=== PATIENT | female | born 1975 | race Caucasian/White ===

== ENCOUNTER 2016-08-21 21:53 | Inpatient (IN) | payer MEDICAID ==
[2016-08-21 23:40] LABS: BASO # 0.1 K/uL (0.0-0.2); EOS # 0.1 K/uL (0.0-0.7); EOS % 0.9 % (0.0-4.0); HEMATOCRIT 39.6 % (34.0-47.0); LYMPH # 2.4 K/uL (1.0-4.3); LYMPH % 31.2 % (20.0-40.0); MEAN CELL VOLUME 89.1 fl (81.0-99.0); MEAN CORPUSCULAR HGB CONC 33.7 g/dL (33.0-37.0); MONO # 0.7 K/uL (0.0-0.8); MONO % 8.8 % (0.0-10.0); NEUT # 4.5 K/uL (1.8-7.0); NEUT % 58.1 % (50.0-75.0); NRBC % 0.1 % (0.0-0.0); RED CELL DISTRIBUTION WIDTH 13.2 % (11.5-14.5); WHITE BLOOD COUNT 7.7 K/uL (4.8-10.8)
[2016-08-21 23:49] LABS: ALB/GLOB RATIO 1.1 (1.0-2.1); ALCOHOL SERUM < 10 mg/dl (0-10); ALKALINE PHOSPHATASE 53 U/L (38-126); ALT/SGPT 29 U/L (9-52); AST/SGOT 25 U/L (14-36); BILIRUBIN,TOTAL 0.2 mg/dl (0.2-1.3); BLOOD UREA NITROGEN 18 mg/dl (7-17); CALCIUM 9.1 mg/dL (8.4-10.2); CARBON DIOXIDE 22 mmol/L (22-30); CHLORIDE 108 mmol/L (98-107); GFR AFRICAN-AMERICAN > 60; GLUCOSE,RANDOM 170 mg/dL (65-105); POTASSIUM 3.9 MMOL/L (3.6-5.0); SODIUM 144 mmol/l (132-148); TOTAL PROTEIN 7.5 G/DL (6.3-8.2)
--- NOTE | 2016-08-22 01:39 | ED PDOC ---
HPI: Psych/Substance Abuse Time Seen by Provider: 08/21/16 22:30 Chief Complaint (Nursing): Substance Abuse Chief Complaint (Provider): substance abuse History Per: EMS Additional History Per: EMS Additional Complaint(s): 41 y/o female brought in by EMS for possible alcohol intoxication. Patient found sleeping [place] ground [place] [employer] [place]. HPI limited, patient awake but refusing to answer questions. Past Medical History Reviewed: Historical Data, Nursing Documentation, Vital Signs Vital Signs: Last Vital Signs Temp 98.1 F 08/21/16 21:55 Pulse 87 08/21/16 21:55 Resp 18 08/21/16 21:55 BP 128/87 08/21/16 21:55 Pulse Ox 99 08/21/16 21:55 - Medical History PMH: Anxiety, Bipolar Disorder Denies: Diabetes, Hepatitis, HIV, HTN, Kidney Stones, Chronic Kidney Disease , Seizures, Sexually Transmitted Disease - Surgical History Surgical History: Hernia Repair, (x 3) - Family History Family History: States: Unknown Family Hx - Home Medications Home Medications: Ambulatory Orders Medication Instructions Recorded No Known Home Med 08/22/16 - Allergies Allergies/Adverse Reactions: Allergies Allergy/AdvReac Type Severity Reaction Status Date / Time haloperidol [From Haldol] Allergy RASH Verified 03/24/16 15:04 haloperidol lactate Allergy RASH Verified 03/24/16 15:04 [From Haldol] lithium Allergy URTICARIA Verified 03/24/16 15:04 Review of Systems ROS Statement: Except As Marked, All Systems Reviewed And Found Negative Physical Exam - Reviewed Nursing Documentation Reviewed: Yes Vital Signs Reviewed: Yes - Physical Exam Appears: Positive for: Well, Non-toxic, No Acute Distress Head Exam: Positive for: ATRAUMATIC, NORMAL INSPECTION, NORMOCEPHALIC Skin: Positive for: Normal Color Eye Exam: Positive for: Normal appearance, EOMI, PERRL ENT: Positive for: Normal ENT Inspection Cardiovascular/Chest: Positive for: Regular Rate, Rhythm Respiratory: Positive for: Normal Breath Sounds Gastrointestinal/Abdominal: Positive for: Normal Exam Extremity: Positive for: Normal ROM Neurologic/Psych: Positive for: Alert. Negative for: Oriented - Laboratory Results Result Diagrams: 08/21/16 23:37 08/21/16 23:37 - ECG ECG: Positive for: Viewed By Me (reviewed by ED attending) ECG Rhythm: Positive for: Sinus Rhythm O2 Sat by Pulse Oximetry: 99 - Radiology X-Ray: Viewed By De X-Ray Interpretation: No Acute Disease - Progress ED Course And Treament: accucheck, labs, urine Medical Decision Making Medical Decision Making: Patient medically stable for psych admission. ED OBSERVATION Date of observation admission: 08/22/16 Time of observation admission: 00:00 - Observation admission statement Patient is being placed in observation because:: substance abuse, bizarre behavior - Goals of Observation Goals of observation are:: observe for sobriety - Progress Note Progress Note: 08/22/16 00:00 Patient sleeping; no distress 08/22/16 1:20 Patient noted to be out of exam room; walking around ED without responding to anyone when called. Patient does not respond to questions when approached, just stares. Patient brought back to room but is now outside of exam room again. Security at bedside. Patient medicated with Ativan for agitation/comfort and restrained for high risk of elopement/self harm/staff harm ; CT head ordered for bizarre behavior EXAM: CT Head Without Intravenous Contrast. CLINICAL HISTORY: 41 years old, female; Signs and symptoms; Altered mental status/memory loss; Additional info: AMS TECHNIQUE: Axial computed tomography images of the head/brain without intravenous contrast. This CT exam was performed using one or more of the following dose reduction techniques: automated exposure control, adjustment of the mA and/or kV according to patient size, and/or use of iterative reconstruction technique. Coronal and sagittal reformatted images were created and reviewed. EXAM DATE/TIME: 08/22/2016 1:35 AM COMPARISON: No relevant prior studies available. FINDINGS: No intracranial hemorrhage. No intracranial edema. No evidence of infarct. The sinuses and mastoid air cells are clear. IMPRESSION: No acute findings. 08/22/16 05:33 Patient evaluated by lithopone mill worker; to be admitted as per Dr. Black. Disposition - Clinical Impression Clinical Impression: Bipolar disorder, Polysubstance abuse - Patient ED Disposition Is Patient to be Admitted: Yes - Disposition Disposition Time: 05:49 Condition: STABLE - Pt Status Changed To: Hospital Disposition Of: Inpatient - Admit Certification Admit to Inpatient:: After my assessment, the patient will require hospitalization for at least two midnights. This is because of the severity of symptoms shown, intensity of services needed, and/or the medical risk in this patient being treated as an outpatient. - POA Present On Arrival: None
--- NOTE | 2016-08-22 03:01 | CT ---
EXAM: CT Head Without Intravenous Contrast. CLINICAL HISTORY: 41 years old, female; Signs and symptoms; Altered mental status/memory loss; Additional info: AMS TECHNIQUE: Axial computed tomography images of the head/brain without intravenous contrast. This CT exam was performed using one or more of the following dose reduction techniques: automated exposure control, adjustment of the mA and/or kV according to patient size, and/or use of iterative reconstruction technique. Coronal and sagittal reformatted images were created and reviewed. EXAM DATE/TIME: 08/22/2016 1:35 AM COMPARISON: No relevant prior studies available. FINDINGS: No intracranial hemorrhage. No intracranial edema. No evidence of infarct. The sinuses and mastoid air cells are clear. IMPRESSION: No acute findings.
[2016-08-22 07:34] VITALS: RESP 20
--- NOTE | 2016-08-22 07:53 | CARD ---
APPROVED REPORT EKG Measurement Heart [id number] FL 146P-6 [id number] <Conclusion> Normal sinus rhythm Normal ECG
--- NOTE | 2016-08-22 09:27 | RAD ---
HISTORY: clearance COMPARISON: Comparison chest 03/24/2016. FINDINGS: LUNGS: No active pulmonary disease. Bilateral nipple shadows are present. PLEURA: No significant pleural effusion identified, no pneumothorax apparent. CARDIOVASCULAR: Normal. OSSEOUS STRUCTURES: Note made of small soft tissue calcification adjacent to the greater tuberosity right humerus consistent with calcific tendinitis or bursitis. VISUALIZED UPPER ABDOMEN: Normal. OTHER FINDINGS: None. IMPRESSION: No active disease.
[2016-08-22 10:20] VITALS: BP 120/77; PULSE 88; TEMP 98.4
[2016-08-22 10:32] VITALS: O2SAT 98
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
--- NOTE | 2016-08-22 11:58 | PCM.PYCHDC ---
Mental Status Examination - Mental Status Examination Suicidal Ideation: No Current Homicidal Ideation?: No Plan: see admission not mse. denies suicidal/homicidal thoughts Discharge Summary - Discharge Note Reason for Hospitalization: depression Psychiatric History (includes Medical, Family, Personal Hx): history of polysubstance abuse Consultations:: List each consultation separately and include: 1. Reason for request. 2. Findings. 3. Follow-up Summary of Hospital Course include:: 1. Description of specific treatment plan utilized for patients during their course of treatmen. 2. Summarize the time- course for resolution of acute symptoms and/or regressed behaviors. 3. Describe issues identified and worked on during hospitalization. 4. Describe medication utilized. 5. Describe medical problems identified and treated. 6. Reassessment of suicide risk Summary of Hospital Course: 41 yo female who is a polysubstance abuser. she does not want to be in the hospital. she states her mother 3 years ago today. she states she felt sad and used heroin (her urine is positive for opioids, cannabinoid, benzos and cocaine. she states that the ER is lying and that she does not want to kill herself. her is waiting downstairs to pick the patient up. she states she will go to the cemetery to visit her mothers grave, pay her rent and go back to work. she denies any psychotic symptoms. she is demanding to leave the hospital. she denies any intent to harm self. hospital course: pt seen in treatment team and was assessed and was denying suicidal or homicidal thoughts. she had family waiting downstairs who was supportive. - Final Diagnosis (DSM 5) Condition upon Discharge: STABLE DSM 5: polysubstance dependence Disposition: AGAINST MEDICAL ADVICE Follow-up Treatment Plan: pt will be discharged home with and follow up with her aftercare appointments she will call 911 if any suicidal thoughts she was advised to abstain from alcohol, tobacco or other illicit substances - Smoking Cessation Smoking Cessation Medication prescribed: No - Antipsychotic Medications Pt discharged on 2 or more routine antipsychotic medications: No
== END 2016-08-22 12:58 | disposition left against medical advice (07) | DRG 743 ==
LOC: H.ER 21:53 → H.EROBSV 08-22 → OBSVTOIN 08-22 05:30 → H.ERHOLD 08-22 05:30 → H.PSYCH 08-22 10:36
PROVIDERS: ADMIT Psychiatry & Neurology Psychiatry; ATTEND Psychiatry & Neurology Psychiatry
DX: F12.20 Cannabis dependence, uncomplicated (principal); F11.20 Opioid dependence, uncomplicated; F13.20 Sedative, hypnotic or anxiolytic dependence, uncomplicated; F14.20 Cocaine dependence, uncomplicated; F39 Unspecified mood [affective] disorder; Z78.1 Physical restraint status

== ENCOUNTER 2016-11-20 23:10 | Observation (INO) | payer MEDICAID ==
[2016-11-20 23:15] VITALS: PULSE 75; O2SAT 99
--- NOTE | 2016-11-20 23:40 | ED PDOC ---
HPI: Psych/Substance Abuse Time Seen by Provider: 11/20/16 23:25 Chief Complaint (Nursing): Psychiatric Evaluation Chief Complaint (Provider): psych eval ED Caveat: Other (clinical presentation) History Per: EMS, Family History/Exam Limitations: clinical condition Current Symptoms Are (Timing): Still Present Additional Complaint(s): The patient is a 41yo female, brought to the ED by her father for evaluation as patient has not been speaking. Per EMS, the pt's father called EMS because the patient had not been answering questions and the father was unsure if the patient has been compliant with her medications. At present, a full HPI and ROS is unavailable as patient is not speaking. Of note, pt has spontaneous eye movements and normal movements in all extremities. Pt was also seen in this facility in July for similar complaints. Past Medical History Reviewed: Historical Data, Nursing Documentation, Vital Signs Vital Signs: Last Vital Signs Temp 98 F 11/20/16 23:11 Pulse 75 11/20/16 23:11 Resp 17 11/20/16 23:11 BP 128/92 H 11/20/16 23:11 Pulse Ox 99 11/20/16 23:11 - Medical History PMH: Anxiety, Bipolar Disorder Denies: Diabetes, Hepatitis, HIV, HTN, Kidney Stones, Chronic Kidney Disease , Seizures, Sexually Transmitted Disease - Surgical History Surgical History: Hernia Repair, (x 3) - Family History Family History: States: Unknown Family Hx - Living Arrangements Living Arrangements: With Family - Home Medications Home Medications: Ambulatory Orders Medication Instructions Recorded No Known Home Med 08/22/16 - Allergies Allergies/Adverse Reactions: Allergies Allergy/AdvReac Type Severity Reaction Status Date / Time haloperidol [From Haldol] Allergy RASH Verified 03/24/16 15:04 haloperidol lactate Allergy RASH Verified 03/24/16 15:04 [From Haldol] lithium Allergy URTICARIA Verified 03/24/16 15:04 Review of Systems ROS Statement: Except As Marked, All Systems Reviewed And Found Negative Review Of Systems: ROS cannot be obtained secondary to pt's inabilty to answer questions. (pt is not responding to questions) Physical Exam - Reviewed Nursing Documentation Reviewed: Yes Vital Signs Reviewed: Yes - Physical Exam Appears: Positive for: Well, Non-toxic, No Acute Distress Head Exam: Positive for: ATRAUMATIC, NORMAL INSPECTION, NORMOCEPHALIC Skin: Positive for: Normal Color Eye Exam: Positive for: Normal appearance, Other (spontaneous eye movements) Neck: Positive for: Normal Cardiovascular/Chest: Positive for: Regular Rate, Rhythm Respiratory: Positive for: Normal Breath Sounds. Negative for: Respiratory Distress Extremity: Positive for: Normal ROM. Negative for: Deformity, Swelling - ECG O2 Sat by Pulse Oximetry: 99 (RA) Pulse Ox Interpretation: Normal Medical Decision Making Medical Decision Making: Time: 2335 Impression: Bipolar disorder Upon review of previous charts, patient was evaluated in this facility in July 2016 for similar presentation and was admitted. Plan: * Bloodwork * Urinalysis * ED Observation Scribe Attestation: Documented by Juliette Osuna acting as a scribe for Lakeisha Bolden MD. Provider Attestation: All medical record entries made by the Scribe were at my direction and personally dictated by me. I have reviewed the chart and agree that the record accurately reflects my personal performance of the history, physical exam, medical decision making, and the department course for this patient. I have also personally directed, reviewed, and agree with the discharge instructions and disposition. ED OBSERVATION Date of observation admission: 11/20/16 Time of observation admission: 23:36 - Observation admission statement Patient is being placed in observation because:: Patient awaiting bloodwork.
[2016-11-21 00:41] LABS: BASO % 0.5 % (0.0-2.0); EOS % 0.2 % (0.0-4.0); HEMATOCRIT 39.9 % (34.0-47.0); LYMPH # 2.7 K/uL (1.0-4.3); LYMPH % 33.9 % (20.0-40.0); MEAN CELL VOLUME 89.5 fl (81.0-99.0); MEAN CORPUSCULAR HEMOGLOBIN 29.7 pg (27.0-31.0); MEAN CORPUSCULAR HGB CONC 33.2 g/dL (33.0-37.0); MEAN PLATELET VOLUME 8.1 fl (7.2-11.7); MONO # 0.6 K/uL (0.0-0.8); MONO % 7.9 % (0.0-10.0); NEUT # 4.5 K/uL (1.8-7.0); NEUT % 57.5 % (50.0-75.0); NRBC % 0.1 % (0.0-0.0); RED CELL DISTRIBUTION WIDTH 13.1 % (11.5-14.5); WHITE BLOOD COUNT 7.9 K/uL (4.8-10.8)
[2016-11-21 00:50] LABS: ALB/GLOB RATIO 1.2 (1.0-2.1); ALKALINE PHOSPHATASE 57 U/L (38-126); ALT/SGPT 88 U/L (9-52); AST/SGOT 33 U/L (14-36); BILIRUBIN,TOTAL 0.9 mg/dl (0.2-1.3); BLOOD UREA NITROGEN 23 mg/dl (7-17); CALCIUM 9.5 mg/dL (8.4-10.2); CARBON DIOXIDE 18 mmol/L (22-30); CHLORIDE 108 mmol/L (98-107); GFR AFRICAN-AMERICAN > 60; GLUCOSE,RANDOM 97 mg/dL (65-105); POTASSIUM 3.4 MMOL/L (3.6-5.0); SODIUM 139 mmol/l (132-148); TOTAL PROTEIN 8.2 G/DL (6.3-8.2)
--- NOTE | 2016-11-21 01:52 | ED PDOC ---
- Laboratory Results Result Diagrams: 11/20/16 00:38 11/20/16 23:38 - ECG O2 Sat by Pulse Oximetry: 99 (RA) Pulse Ox Interpretation: Normal Medical Decision Making Medical Decision Making: Receiving sign out: Patient signed out to me by Dr. Bolden pending bloodwork, crisis evaluation and final ED dispo. Scribe Attestation: Documented by Juliette Osuna acting as a scribe for Bettina Hardy MD. Provider Attestation: All medical record entries made by the Scribe were at my direction and personally dictated by me. I have reviewed the chart and agree that the record accurately reflects my personal performance of the history, physical exam, medical decision making, and the department course for this patient. I have also personally directed, reviewed, and agree with the discharge instructions and disposition. Disposition Doctor Will See Patient In The: Office Counseled Patient/Family Regarding: Studies Performed, Diagnosis, Need For Followup - Clinical Impression Clinical Impression: Substance abuse, Bipolar disorder - POA Present On Arrival: None - Disposition Disposition: Routine/Home Disposition Time: 04:11 Condition: GOOD Progress Note - Review of Symptoms Events since last encounter: 11/21/2016 04:11 Pt seen and evaluated by crisis; stable for discharge home per Dr. Ku Final diagnosis: Substance abuse, bipolar disorder
[2016-11-21 02:47] LABS: ALCOHOL SERUM < 10 mg/dl (0-10)
[2016-11-21 04:34] VITALS: BP 126/82; RESP 18; TEMP 98.3
--- NOTE | 2016-11-21 18:08 | CARD ---
APPROVED REPORT EKG Measurement Heart [id number] DE 148P-12 [id number] <Conclusion> Normal sinus rhythm Normal ECG
== END 2016-11-21 04:11 | disposition home or self-care (01) ==
LOC: H.ER 23:10 → H.EROBSV 23:36
PROVIDERS: ADMIT Emergency Medicine; ATTEND Emergency Medicine
DX: F31.9 Bipolar disorder, unspecified (principal); F19.10 Other psychoactive substance abuse, uncomplicated

== ENCOUNTER 2017-03-23 07:24 | Emergency (ER) | payer MEDICAID ==
[2017-03-23 07:30] VITALS: BMI 24.9
[2017-03-23 08:42] LABS: BASO % 0.5 % (0.0-2.0); EOS # 0.1 K/uL (0.0-0.7); EOS % 1.7 % (0.0-4.0); HEMATOCRIT 38.7 % (34.0-47.0); LYMPH # 1.5 K/uL (1.0-4.3); LYMPH % 25.7 % (20.0-40.0); MEAN CELL VOLUME 83.4 fl (81.0-99.0); MEAN CORPUSCULAR HEMOGLOBIN 29.4 pg (27.0-31.0); MEAN CORPUSCULAR HGB CONC 35.3 g/dL (33.0-37.0); MONO # 0.9 K/uL (0.0-0.8); MONO % 15.8 % (0.0-10.0); NEUT # 3.3 K/uL (1.8-7.0); NEUT % 56.3 % (50.0-75.0); NRBC % 0.2 % (0.0-0.0); RED CELL DISTRIBUTION WIDTH 12.7 % (11.5-14.5); WHITE BLOOD COUNT 5.9 K/uL (4.8-10.8)
[2017-03-23 09:03] LABS: ALCOHOL SERUM < 10 mg/dl (0-10); BLOOD UREA NITROGEN 16 mg/dl (7-17); CALCIUM 9.6 mg/dL (8.4-10.2); CARBON DIOXIDE 22 mmol/L (22-30); CHLORIDE 105 mmol/L (98-107); GFR AFRICAN-AMERICAN > 60; GLUCOSE,RANDOM 92 mg/dL (65-105); POTASSIUM 3.7 MMOL/L (3.6-5.0); SODIUM 138 mmol/l (132-148)
--- NOTE | 2017-03-23 09:05 | ED PDOC ---
HPI: Psych/Substance Abuse Time Seen by Provider: 03/23/17 07:30 Chief Complaint (Nursing): Psychiatric Evaluation Chief Complaint (Provider): Psychiatric evaluation ED Caveat: Respiratory Distress, Uncooperative (uncooperative at ties) History Per: EMS Additional Complaint(s): 42yo female, brought in by EMS for a psychaitric evaluation after receiving a call from patient's boyfriend stating patient was acting bizarre. Upon interview , patient is somewhat uncooperative and is not answering all questions; a full HPI and ROS unavailable. Patient denies any suicidal ideation, homicidal ideation and offers no medical complaints. Past Medical History Reviewed: Historical Data, Nursing Documentation, Vital Signs Vital Signs: Last Vital Signs Temp 98.8 F 03/23/17 07:28 Pulse 88 03/23/17 07:28 Resp 18 03/23/17 07:28 BP 107/72 03/23/17 07:28 Pulse Ox 97 03/23/17 07:28 - Medical History PMH: Anxiety, Bipolar Disorder Denies: Diabetes, Hepatitis, HIV, HTN, Kidney Stones, Chronic Kidney Disease , Seizures, Sexually Transmitted Disease - Surgical History Surgical History: Hernia Repair, (x 3) - Family History Family History: States: No Known Family Hx, Unknown Family Hx - Home Medications Home Medications: Ambulatory Orders Medication Instructions Recorded No Known Home Med 08/22/16 - Allergies Allergies/Adverse Reactions: Allergies Allergy/AdvReac Type Severity Reaction Status Date / Time haloperidol [From Haldol] Allergy RASH Verified 03/24/16 15:04 haloperidol lactate Allergy RASH Verified 03/24/16 15:04 [From Haldol] lithium Allergy URTICARIA Verified 03/24/16 15:04 Review of Systems ROS Statement: Except As Marked, All Systems Reviewed And Found Negative Psych: Negative for: Suicidal ideation, Other (homicidal ideation ) Physical Exam - Reviewed Nursing Documentation Reviewed: Yes Vital Signs Reviewed: Yes - Physical Exam Appears: Positive for: Non-toxic Head Exam: Positive for: ATRAUMATIC, NORMAL INSPECTION, NORMOCEPHALIC Eye Exam: Positive for: Normal appearance Neck: Positive for: Supple Cardiovascular/Chest: Positive for: Regular Rate, Rhythm Respiratory: Positive for: Normal Breath Sounds. Negative for: Respiratory Distress Neurologic/Psych: Positive for: Alert, Oriented, Mood/Affect (flat) - Laboratory Results Result Diagrams: 03/23/17 08:15 03/23/17 08:15 - ECG ECG: Positive for: Interpreted By Me, Viewed By Me ECG Rhythm: Positive for: Normal QRS, Normal ST Segment, Sinus Rhythm Rate: 76 O2 Sat by Pulse Oximetry: 97 (RA) Pulse Ox Interpretation: Normal Medical Decision Making Medical Decision Making: Time: 814 Impression: Psychiatric evaluation Plan: -- Labs -- Urinalysis Reassess Time: 1146 Patient to be [place] by [facility] EKG ordered. Time: 1158 EKG normal Patient medically cleared. Time: 1330 Resting in room, no acute distress Time: 1500 Patient resting in room, no distress. pending [facility] [place]. Time: 1700 Patient to be signed out to Dr. Hardy pending [facility] screen. Scribe Attestation: Documented by Juliette Osuna acting as a scribe for Kalen Rogers MD. Provider Attestation: All medical record entries made by the Scribe were at my direction and personally dictated by me. I have reviewed the chart and agree that the record accurately reflects my personal performance of the history, physical exam, medical decision making, and the department course for this patient. I have also personally directed, reviewed, and agree with the discharge instructions and disposition. Disposition - Clinical Impression Clinical Impression: Bipolar 1 disorder, manic, mild - Patient ED Disposition Is Patient to be Admitted: Transfer of Care - Disposition Disposition: Transfer of Care Disposition Time: 17:00 Condition: STABLE Forms: [facility] ([place]) Patient Signed Over To: Bettina Hardy
[2017-03-23 10:04] LABS: URINE BILIRUBIN NEGATIVE (NEGATIVE); URINE BLOOD NEGATIVE (NEGATIVE); URINE COLOR AMBER (YELLOW); URINE GLUCOSE (UA) NEG (Normal); URINE KETONE NEGATIVE (NEGATIVE); URINE LEUKOCYTE ESTERASE NEG Leu/uL (Negative); URINE PROTEIN 30 mg/dL (NEGATIVE); WBC URINE 1 /hpf (0-5)
--- NOTE | 2017-03-23 17:00 | ED PDOC ---
- Laboratory Results Result Diagrams: 03/23/17 08:15 03/23/17 08:15 - ECG O2 Sat by Pulse Oximetry: 97 (RA) Pulse Ox Interpretation: Normal Medical Decision Making Medical Decision Making: Receiving sign out: Patient signed out to me by Dr. Rogers at 1700 pending [facility] [place]. Time: 19:00 --Patient is signed out by me to Dr. Mamadou Cross pending [facility] [place]. Scribe Attestation: Documented by Juliette Osuna and Kareem Ely acting as a scribe for Bettina Hardy MD. Provider Attestation: All medical record entries made by the Scribe were at my direction and personally dictated by me. I have reviewed the chart and agree that the record accurately reflects my personal performance of the history, physical exam, medical decision making, and the department course for this patient. I have also personally directed, reviewed, and agree with the discharge instructions and disposition. Disposition - Clinical Impression Clinical Impression: Bipolar 1 disorder, manic, mild - POA Present On Arrival: None - Disposition Disposition: Transfer of Care Disposition Time: 19:00 Condition: STABLE
[2017-03-23 19:45] VITALS: O2SAT 97
--- NOTE | 2017-03-23 19:49 | ED PDOC ---
- Laboratory Results Result Diagrams: 03/23/17 08:15 03/23/17 08:15 - ECG O2 Sat by Pulse Oximetry: 97 (RA) Pulse Ox Interpretation: Normal Medical Decision Making Medical Decision Making: Time: 19:00 --Patient is signed out to me by Dr. Bettina Hardy pending [facility] screening. 0000 Patient agitated, requiring Geodon. 0300 Patient continually asking for food, blankets, showers, toothbrush, etc. All items provided, allowed patient to shower. Allowed patient to make phone call with supervision by Amanda location worker. 600 Patient agitated once again, refusing to stay in room. Further chemical sedation required as well as physical restraints. 0700 Will sign out to day team pending bed availability at [facility]. Scribe Attestation: Documented by Kareem Ely, acting as a scribe for Dr. Mamadou Cross MD. Provider Scribe Attestation: All medical record entries made by the Scribe were at my direction and personally dictated by me. I have reviewed the chart and agree that the record accurately reflects my personal performance of the history, physical exam, medical decision making, and the department course for this patient. I have also personally directed, reviewed, and agree with the discharge instructions and disposition. Disposition - Clinical Impression Clinical Impression: Bipolar 1 disorder, manic, mild - POA Present On Arrival: None - Disposition Disposition: Transfer of Care Disposition Time: 07:00 Condition: STABLE Forms: [facility] (Croatian) Patient Signed Over To: Kalen Rogers Handoff Comments: pending bed availability at [facility]
[2017-03-23] MEDS ORDERED: Sterile Water 10 ML IV ONE (20:37)
[2017-03-24] MEDS ORDERED: Midazolam 2 MG/2 ML VIAL ONE (05:44)
[2017-03-24] MEDS ORDERED: Midazolam 2 MG/2 ML VIAL IM ONE (05:51)
--- NOTE | 2017-03-24 07:29 | ED PDOC ---
- Laboratory Results Result Diagrams: 03/23/17 08:15 03/23/17 08:15 - ECG O2 Sat by Pulse Oximetry: 97 (RA) Medical Decision Making Medical Decision Makin Patient transferred to ne by Dr. Cross. Pending [facility] [place] [address] Escobar over at [facility] [place] Disposition - Clinical Impression Clinical Impression: Bipolar 1 disorder, manic, mild - POA Present On Arrival: None - Disposition Disposition: Other Institution ([facility] [place] [facility]) Disposition Time: 10:00 Condition: STABLE Forms: [facility] ([place])
--- NOTE | 2017-03-24 07:33 | CARD ---
APPROVED REPORT EKG Measurement Heart [id number] <Conclusion> Normal sinus rhythm Rightward axis Borderline ECG
--- NOTE | 2017-03-24 08:34 | RAD ---
HISTORY: psych COMPARISON: 08/22/2016 FINDINGS: LUNGS: The lungs are well inflated and. PLEURA: No significant pleural effusion identified, no pneumothorax apparent. CARDIOVASCULAR: Normal. OSSEOUS STRUCTURES: No significant abnormalities. VISUALIZED UPPER ABDOMEN: Normal. OTHER FINDINGS: None. IMPRESSION: No active pulmonary disease.
[2017-03-24 12:47] VITALS: BP 124/81; PULSE 81; RESP 14; TEMP 97.9
== END 2017-03-24 10:15 | disposition short-term general hospital (02) ==
LOC: H.ER 07:24
DX: F31.9 Bipolar disorder, unspecified (principal); F41.9 Anxiety disorder, unspecified; Z00.8 Encounter for other general examination; Z86.59 Personal history of other mental and behavioral disorders
CPT/HCPCS: 71010; 80048; 80320; 80324; 80329; 80345; 80346; 80349; 80353; 80358; 80361; 81003; 81025; 83992; 85025; 93005; 96372; 99285; J2060; J2250; J3486